=== PATIENT | female | born 1995 | race Caucasian/White ===

== ENCOUNTER 2019-05-07 07:20 | Outpatient (CLI) | payer BC, SELFPAY ==
[2019-05-07 07:34] VITALS: BMI 31.7
[2019-05-07] MEDS: Lactated Ringers 1,000 ML 125 ML IV (07:51)
--- NOTE | 2019-05-30 09:13 | OB.TRI.NOTE ---
History of Present Illness Date of Service: 05/07/19 Was patient seen by the physician?: Yes Reason For Visit: breech Date of Service: 05/07/19 Final TAMICA Source: US <20 weeks Allergies No Known Allergies Allergy (Verified 05/13/19 00:58) Laboratory Studies: Laboratory Tests 05/07/19 Range/Units 07:51 Blood Type O POSITIVE Antibody Screen NEGATIVE Physical Exam General: Alert, Cooperative, No apparent distress Abdomen: Soft, Non Tender, Non-Distended, Appropriate for Gestational Age NST - FHR Rate Baby A Baseline: normal Variability:: Moderate Accelerations:: 15 x 15 Decelerations:: None NST Reactive:: Yes, Appropriate for gestational age FHR Category:: Category I Uterine Activity:: no regular ctxs Impression/Plan 23-year-old primigravida female presented with breech presentation. Breech presentation was confirmed by ultrasound. Risk benefits and alternatives to attempted external cephalic version were discussed with the patient, her questions were answered to her satisfaction consent was signed. Procedure note: Dr. Sahu and I attempted an external cephalic version both frontward roll and a backward roll. After attempting the backward roll, there was deceleration to approximately 80 bpm. It resolved within 1 minute. At that point, I discussed with the patient that we had unable to really engage the breech or get the head to move significantly out of the left upper quadrant. We deemed the procedure unsuccessful. With the deceleration, I discussed with her that I did not recommend another attempt. Patient was comfortable with this plan. Will monitor for symptoms or signs of labor and further decelerations. If category 1 tracing, may discharge home with routine follow-up and instructions.
== END 2019-05-07 10:15 | disposition home or self-care (01) ==
LOC: WPOUT 07:33 → WP 07:34
PROVIDERS: Family Provider Family Medicine; PCP Family Medicine; Referring Provider Obstetrics & Gynecology; Visit Provider Obstetrics & Gynecology
DX: O32.1XX0 Maternal care for breech presentation, not applicable or unspecified (principal); Z3A.00 Weeks of gestation of pregnancy not specified
CPT/HCPCS: 59050; 59412; 86850; 86900; 99218; J7120; G0378

== ENCOUNTER 2019-05-13 00:40 | Outpatient (CLI) | payer BC, SELFPAY ==
[2019-05-13 00:57] VITALS: BMI 32.3
--- NOTE | 2019-05-18 13:20 | OB.TRI.NOTE ---
History of Present Illness Date of Service: 05/04/19 Was patient seen by the physician?: No Reason For Visit: R/O LABOR Date of Service: 05/04/19 Final TAMICA: 05/24/19 Final TAMICA Source: US <20 weeks Gestational age: 39 Weeks and 1 Days Allergies No Known Allergies Allergy (Verified 05/13/19 00:58) NST - FHR Rate Baby A Baseline: normal Variability:: Moderate Accelerations:: 15 x 15 Decelerations:: None NST Reactive:: Yes, Appropriate for gestational age FHR Category:: Category I Uterine Activity:: irreg ctxs Impression/Plan 23 YOF primigravida at 37+ weeks gestation, terri breech, false labor
== END 2019-05-13 01:12 | disposition home or self-care (01) ==
LOC: WPOUT 00:53 → WP 00:53
PROVIDERS: Family Provider Family Medicine; PCP Family Medicine; Visit Provider Obstetrics & Gynecology
DX: O32.1XX0 Maternal care for breech presentation, not applicable or unspecified (principal); O47.1 False labor at or after 37 completed weeks of gestation; Z3A.37 37 weeks gestation of pregnancy
CPT/HCPCS: 59025; 59050; 99218; G0378

== ENCOUNTER 2019-05-18 10:00 | Inpatient (IN) | payer BC, SELFPAY ==
--- NOTE | 2019-05-15 13:17 | PCM.HP.BLA ---
History and Physical Date of Admission: 05/18/19 Pre-Op History and Physical ? HPI: The patient is a 23 year old female presenting for pre-operative visit. She is scheduled for?primary , for??breech on?05/18/19 at 39 1/7 weeks. ??Procedure discussed along with risks, benefits and complications. ?Other alternatives discussed for management. Consent form signed??Yes.? PAST?MEDICAL?HISTORY PAST MEDICAL HISTORY Diagnosis Date ? Oral herpes ? ? ? PAST?SURGICAL?HISTORY PAST SURGICAL HISTORY Procedure Laterality Date ? PAST SURGICAL HISTORY OF ? ? ? mole reomved from back ? TOOTH EXTRACTION ? ? ? wisdom teeth ? ? CURRENT?MEDICATIONS Current Outpatient Medications Medication Sig Dispense Refill ? [id number] ORAL Take by mouth. ? ? ? ACYCLOVIR ORAL Take by mouth. ? ? ? No current facility-administered medications for this visit.? ? ALLERGIES:?Patient has no known allergies. ? PERSONAL HISTORY:? SOCIAL?HISTORY Social History ??Socioeconomic History ?Marital status: ?Spouse name: Barrie ?Number of children: Not on file ?Years of education: 16 ?Highest education level: Not on file ??Occupational History ?Occupation: site safety manager ?Employer: [employer] ??Social Needs ?Financial resource strain: Not on file ?Food insecurity: ?Worry: Not on file ?Inability: Not on file ?Transportation needs: ?Medical: Not on file ?Non-medical: Not on file ??Tobacco Use ?Smoking status: Never Smoker ?Smokeless tobacco: Never Used ??Substance and Sexual Activity ?Alcohol use: Yes ?Comment: occasional, not while prergnant ?Drug use: No ?Sexual activity: Yes ?Partners: Male ? control/protection: None ??Lifestyle ?Physical activity: ?Days per week: Not on file ?Minutes per session: Not on file ?Stress: Not on file ??Relationships ?Social connections: ?Talks on phone: Not on file ?Gets together: Not on file ?Attends gnosticism service: Not on file ?Active member of club or organization: Not on file ?Attends meetings of clubs or organizations: Not on file ?Relationship status: Not on file ?Intimate partner violence: ?Fear of current or ex partner: Not on file ?Emotionally abused: Not on file ?Physically abused: Not on file ?Forced sexual activity: Not on file ??Other Topics ?Concerns: ?Not on file ??Social History Narrative ?Not on file ? FAMILY HISTORY:? FAMILY?HISTORY FAMILY HISTORY Problem Relation Age of Onset ? No Known Problems Mother ? ? No Known Problems Father ? ? No Known Problems Sister ? ? No Known Problems Brother ? ? Cancer Maternal Grandmother ? ? other (lung cancer) Maternal Grandfather ? ? Heart Paternal Grandmother ? ? No Known Problems Paternal Grandfather ? ? REVIEW OF SYMPTOMS: GENERAL: denies fevers or chills ENDOCRINOLOGY: has not been on steroids Cardiology : denies palpitations or chest pain Respiratory: denies SOB or cough Hematology: denies history of prolonged bleeding or easy bruising or VTE Allergy: Denies history of personal or family history of allergy to anesthesia ? ? PHYSICAL EXAMINATION: ? VITALS:?Blood pressure 108/76, weight 180 lb (81.6 kg), last menstrual period 08/17/2018. ? GENERAL:??The patient is well nourished, well hydrated in no acute distress. ?, The patient is oriented to time, place, and person. NECK:?Supple. No lynphadenopathy, normal thyroid, no thyromegaly. LUNGS:?Clear to auscultation bilaterally. no wheezes, rhonchi or rales HEART:?Regular rate and rhythm, Normal heart sounds and No murmurs or gallops GENITALIA:?Normal external genitalia, Urethral meatus normal, Bladder nontender, normal vagina and normal vaginal tone, normal cervix, normal uterus, size and consistency, normal adnexa without masses or tenderness and perineum WNL WET PREP:?Not indicated ? IMPRESSION:?23 YOF G!P0 @ 39 1/7 WEEKS w/ breech presentation ? PLAN:???The risks/benefits/alternatives and personal involved for the planned?primary c-secftion?were reviewed with the patient. Her questions were answered to her satisfaction and she desires to proceed. ?Consent was signed. ?I reviewed with her postop instructions and expectations. ? ? I have reviewed and updated past medical and surgical history, medications and allergies? Marlyn Torre M.D.
[2019-05-18] VITALS (18 sets, daily range): BP systolic 99–132; BP diastolic 36–77; PULSE 70–108; RESP 16–20; TEMP 35.7–36.4; O2SAT 94–100; BMI 32.3
[2019-05-18] MEDS: Lactated Ringers 1,000 ML 999 ML IV (10:20)
[2019-05-18 10:34] LABS: Absolute Neutrophil Count 8.5 X10^3/uL (2.0-7.7); Basophil# 0.01 X10^3/uL; Basophil% 0.1 % (0-1); Eosinophil# 0.11 X10^3/uL; Hematocrit 36.1 % (37-47); Hemoglobin 12.1 g/dL (12.0-15.0); Lymphocyte % 15.1 % (19-41); Mean Corp Hgb Conc 33.5 g/dL (32-36); Mean Corpuscular Hgb 29.2 pg (27.0-32.0); Mean Platelet Vol. 11.7 fl (6.2-12.0); Monocyte# 0.91 X10^3/uL; Monocyte% 8.1 % (0-10); NRBC Flagged by Analyzer 0 % (0-5); Neutrophil # 8.47 X10^3/uL (2.7-7.7); Neutrophil % 75.1 % (47-70); Platelet Count 162 K/mm3 (150-450); RBC Distribution Width CV 13.2 % (11.6-14.6); RBC Distribution Width SD 41.6 fl (35.1-43.9); Red Blood Count 4.15 M/mm3 (4.2-5.4); White Blood Count 11.3 K/mm3 (4.4-11.0)
[2019-05-18] MEDS: Lactated Ringers 1,000 ML 150 ML IV (11:30)
[2019-05-18] MEDS: Sodium Citrate/Citric Acid 30 ML UDC PO (13:10)
[2019-05-18] MEDS: Cefazolin 2 GM in 0.9% Normal Saline 100 ML IV (13:10)
--- NOTE | 2019-05-18 14:10 | PCM.OPRPT ---
Delivery Classification: Scheduled Final TAMICA: 05/24/19 Final TAMICA Source: US <20 weeks Gestational age: 39 Weeks and 1 Days Indications for : Breech Description of Procedure: The patient was taken to the operating room. She was prepped and draped in the dorsal supine position with a leftward tilt. A Pfannenstiel skin incision was made approximately 2 cm above the symphysis pubis and carried through to underlying layer fascia with the scalpel. The fascia was incised incised in the midline and extended laterally with the Pablo scissors. The fascia was dissected off the rectus muscles with blunt and sharp dissection. The rectus muscles were in the midline and the peritoneum was entered bluntly. The peritoneal incision was stretched and the bladder blade was placed. The uterine incision was made in a low transverse fashion with the scalpel and extended superiorly and inferiorly with blunt dissection. The amniotic membranes were ruptured bluntly and clear amniotic fluid returned. The fetus had one foot extended, but I was able to grab the breech and bring it to the incision. With gentle steady traction on the head and the fundus, I was able to deliver the buttocks. The legs were then swept out individually. The arms were then swept out individually. And the head was delivered easily in the flexed position. The cord was clamped and cut as the infant was stimulated. Cord clamping was delayed. The was handed off to the waiting nursing staff. The placenta was delivered with fundal massage and gentle traction in the standard fashion. The uterus was exteriorized and cleared of all clots and debris. The cervix was dilated with a ring forcep. The uterine incision was closed with #1 Vicryl in a running locked fashion. A second layer of the same suture was used in an imbricating fashion. The incision was examined and was found to be hemostatic. The uterus was placed back into the peritoneal cavity and hemostasis was again confirmed. The rectus muscles were examined and any bleeding was Bovie cauterized. The parietal peritoneum and rectus muscles were closed en bloc with an 0 Vicryl running suture. The surgical teams outer gloves were then changed. The rectus fascia was examined and any bleeding was Bovie cauterized and the rectus fascia was closed with 1 Vicryl suture in a running standard fashion. The subcutaneous tissue was examining and any bleeding was Bovie cauterized. The skin was closed in a subcuticular fashion by the DIGITAL MEDIA STRATEGIST with me present in the labor and delivery suite. I performed the remainder of the procedure with assistance. All sponge, lap, and needle counts were correct. The patient was taken to her room for recovery in a stable condition. Amniotic Membrane Rupture Type: Artificial Amniotic Fluid Description: Clear Placenta Disposition: [facility] Specimen(s) sent to pathology: none Drain: Jaeger to straight drain Cord Entanglement: None Cord Vessel Description: 3 Vessels Esitmated Blood Loss (ml): 600 Gender: Female Delayed cord clamping: Yes Pre-op Antibiotic Given: Ancef 2 grams IV x1 Complications: None - Admit VTE Documentation VTE Present on Admission: No VTE Mechan Device Prophylaxis: SCD's VTE Pharm Prophylaxis ordered?: No Reason prophylaxis not ordered:: Procedure Not Indicated
[2019-05-18] MEDS: Oxytocin 30 units/NS 500 ml 30 UNITS/500 ML IV.SOLN 167 UNITS IV (14:25)
[2019-05-18] MEDS: Nalbuphine 10 MG/ML Ampul 5 MG IV ×2 (15:34→16:20)
[2019-05-18] MEDS: 0.9% Saline Lock 10 ML Syringe 5 ML IV ×2 (15:35→16:21)
[2019-05-18] MEDS: Lactated Ringers 1,000 ML 100 ML IV (18:35)
--- NOTE | 2019-05-18 19:34 | NURSING ---
At 1534 Nubain 5 mg iv for itching. and strip printed for normal sinus rhythm. At 1620 Nubain 5 mg iv given for itching. at 1700 Mother states itching better.
[2019-05-18] MEDS: Senna/Docusate Sodium 1 Tablet PO (19:57)
[2019-05-18] MEDS: Ketorolac 30 MG/ML Syringe IV (19:57)
[2019-05-18] MEDS: Ondansetron ODT 4 MG Tablet PO (20:24)
[2019-05-19] VITALS (12 sets, daily range): BP systolic 112–118; BP diastolic 58–70; PULSE 76–94; RESP 16–18; TEMP 36.4–37.2; O2SAT 95–100
[2019-05-19] MEDS: Ketorolac 30 MG/ML Syringe IV ×4 (01:53→21:34)
--- NOTE | 2019-05-19 03:15 | NURSING ---
05/19/19 0316- Patient was primary c section for breech. Jaeger catheter placed prior to delivery, placed by previous nurse on prior shift.
[2019-05-19 06:47] LABS: Hematocrit 33.2 % (37-47); Mean Corp Hgb Conc 33.1 g/dL (32-36); Mean Corpuscular Hgb 29.3 pg (27.0-32.0); Mean Corpuscular Volume 88.5 fL (81-99); Mean Platelet Vol. 11.2 fl (6.2-12.0); Platelet Count 154 K/mm3 (150-450); RBC Distribution Width CV 13.3 % (11.6-14.6); RBC Distribution Width SD 43.1 fl (35.1-43.9); Red Blood Count 3.75 M/mm3 (4.2-5.4); White Blood Count 13.2 K/mm3 (4.4-11.0)
--- NOTE | 2019-05-19 07:38 | PCM.PN.OB ---
Subjective: Pain well controlled, average lochia. Some nausea yesterday but resolved today. Tolerating p.o. Is been up and ambulating. No other complaints. - Physical Exam General: Alert, Oriented x3, Cooperative, No apparent distress Abdomen: Soft, Non-Distended, Distended - Moderately, softly, Tender - Appropriately Extremities: Edema - Trace Skin: Incision - Bandage is clean dry and intact Vital Signs Temp Pulse Resp BP Pulse Ox 97.6 F L 82 16 116/58 L 97 05/19/19 04:15 05/19/19 06:30 05/19/19 06:30 05/19/19 04:15 05/19/19 06:30 Oxygen Delivery Method Room Air Body Mass Index (BMI) 32.3 Intake and Output for Last 24 Hours 05/17/19 05/18/19 05/19/19 23:59 23:59 23:59 Intake Total 2605 / 2605 1900 / 1900 Output Total 1150 / 1150 1200 / 1200 Balance 1455 / 1455 700 / 700 Laboratory Tests Past 24 Hrs 05/18/19 05/18/19 05/19/19 10:20 10:20 06:40 WBC 11.3 H 13.2 H RBC 4.15 L 3.75 L Hgb 12.1 11.0 L Hct 36.1 L 33.2 L MCV 87.0 88.5 MCH 29.2 29.3 MCHC 33.5 33.1 RDW Std Deviation 41.6 43.1 RDW Coeff of Natalia 13.2 13.3 Plt Count 162 154 MPV 11.7 11.2 Immature Gran % (Auto) 0.600 Neut % (Auto) 75.1 H Lymph % (Auto) 15.1 L Spalding % (Auto) 8.1 Eos % (Auto) 1.0 Baso % (Auto) 0.1 Absolute Neuts (auto) 8.5 H Absolute Lymphs (auto) 1.70 Nucleated RBC % 0 Blood Type O POSITIVE Antibody Screen NEGATIVE Medical Necessity - Tobacco Use Smoking Status: Never smoker Assessment/Plan Postoperative day #1 status post primary section Hemodynamically stable. Hemoglobin is appropriate for postop blood loss. Routine care, ambulate today. is breast-feeding doing well. Likely discharge home tomorrow.
[2019-05-19] MEDS: 0.9% Saline Lock 10 ML Syringe 5 ML IV ×3 (08:01→21:34)
[2019-05-19] MEDS: Senna/Docusate Sodium 1 Tablet PO ×2 (09:50→21:34)
[2019-05-20] MEDS: 0.9% Saline Lock 10 ML Syringe 5 ML IV (02:10)
[2019-05-20] MEDS: Ketorolac 30 MG/ML Syringe IV ×2 (02:11→08:59)
[2019-05-20 02:15] VITALS: BP 120/60; PULSE 75; RESP 18; TEMP 36.8
[2019-05-20] MEDS: Acetaminophen 500 MG Tablet 1000 MG PO ×3 (04:39→21:32)
--- NOTE | 2019-05-20 08:29 | PCM.PN.OB ---
Subjective: Pain well controlled, some contractions with nursing. Average lochia. Positive flatus, no bowel movement. Ambulating without difficulty. - Physical Exam General: Alert, Cooperative, No apparent distress Abdomen: Soft, Distended - Mildly, softly, Tender - Appropriately, fundus firm and approximately 1 cm below the umbilicus Vital Signs Temp Pulse Resp BP Pulse Ox 98.3 F 75 18 120/60 96 05/20/19 02:15 05/20/19 02:15 05/20/19 02:15 05/20/19 02:15 05/19/19 16:07 Oxygen Delivery Method Room Air Body Mass Index (BMI) 32.3 Intake and Output for Last 24 Hours 05/18/19 05/19/19 05/20/19 23:59 23:59 23:59 Intake Total 2605 / 2605 1900 / 1900 Output Total 1150 / 1150 1575 / 1575 Balance 1455 / 1455 325 / 325 Medical Necessity - Tobacco Use Smoking Status: Never smoker Assessment/Plan day #2 status post primary for breech Patient is doing well. Working on breast-feeding. Would like to be discharged home tomorrow.
[2019-05-20 08:41] VITALS: BP 110/63; PULSE 79; RESP 16; TEMP 36.6
[2019-05-20] MEDS: Senna/Docusate Sodium 1 Tablet PO ×2 (13:49→21:33)
[2019-05-20 14:01] VITALS: BP 118/76; PULSE 71; RESP 16; TEMP 36.7
[2019-05-20] MEDS: Naproxen 250 MG Tablet PO ×2 (15:35→23:58)
[2019-05-20 19:54] VITALS: BP 131/74; PULSE 77; RESP 18; TEMP 36.6
[2019-05-21 02:15] VITALS: BP 127/79; PULSE 74; RESP 18; TEMP 36.2
[2019-05-21] MEDS: Naproxen 250 MG Tablet PO (09:02)
[2019-05-21] MEDS: Senna/Docusate Sodium 1 Tablet PO (09:03)
--- NOTE | 2019-05-21 09:07 | DCINST_ITS ---
Discharge Diet: No Restrictions Discharge Activity: Return to Normal Activity, May Not Drive - for 2 weeks, May not drive while taking narcotic pain medications., May Shower, May Take a Tub Bath - in 7 days. May resume sexual activity in: 4-6 weeks Lifting Restrictions: 20 pounds Additional Activity Instructions:: Nothing in the vagina for 4-6 weeks. You may return to work/school in 6 weeks. Call your doctor if your incision/area has: Continuous Slow Oozing, Sudden Increased Bleeding, Increased Pain/ Swelling, Increased Redness, Foul Smelling Discharge Call your doctor if you observe: Fever of 101 or Higher, Using more than one pad per hour - for 2 hours Suture Line Care: Avoid Pulling/Pushing, Avoid Pinching/Bending Remove Dressing in (days):: 4 Cleanse incision/area with: Keep Dressing Clean & Dry Additional Instructions: If you experience any of the following, contact your healthcare provider. * Bleeding that soaks a pad every hour for 2 hours * Fever 100.4 or higher * Unrelieved incision or abdominal pain * Swelling, redness, discharge or bleeding from your incision or episiotomy site * Your incision begins to separate * Problems urinating (including inability to urinate or burning while urinating). * Visual changes * Severe headache * Flu-like symptoms * Pain or redness in one of both of your breasts * Pain, warmth, tenderness or swelling in your legs, especially the calf area * Frequent nausea and vomiting * Symptoms of depression or anxiety If you experience any of the following, call 911 or go to the nearest Emergency Room. * Chest pain * Problems breathing * Seizure activity * Partial or complete paralysis of a body part, slurred speech, weakness or drooping of the face, or a sudden inability to walk or hold your balance Allergies/Adverse Reactions: Allergies No Known Allergies Allergy (Verified 05/13/19 00:58) Medications to take at Discharge Vits [Prenatabs FA] 1 tab PO DAILY 05/07/19 Calcium Carbonate [Tums Ultra] 400 mg PO 4X/DAY PRN PRN 05/18/19 Docosahexanoic Acid [Dha Algal-900] 300 mg PO DAILY 05/18/19 Acetaminophen [Tylenol] 1,000 mg PO Q8H PRN #30 tab 05/21/19 Docusate Sodium [Colace] 100 mg PO BID #30 cap 05/21/19 Naproxen [Naprosyn] 250 - 500 mg PO Q8H PRN PRN #30 tab 05/21/19 Oxycodone [Oxyir] 5 mg PO Q4H PRN PRN 5 Days #5 tablet 05/21/19 The following prescriptions were given: Docusate Sodium [Colace] 100 mg PO BID #30 cap Transmission Status: Pending to [id number] Naproxen [Naprosyn] 250 - 500 mg PO Q8H PRN PRN #30 tab PRN Reason: Mild Pain (1-12/07) Transmission Status: Pending to [id number] Oxycodone [Oxyir] 5 mg PO Q4H PRN PRN 5 Days #5 tablet PRN Reason: Mod-Severe Pain (-07/09) Transmission Status: Received by [id number] Acetaminophen [Tylenol] 1,000 mg PO Q8H PRN #30 tab PRN Reason: Mild Pain (1-12/07) Transmission Status: Pending to [id number] Follow-Up: Call to make an appointment with your doctor for an incision check in 1-2 weeks. You will also need a 6 week post- follow up appointment. Test results from this visit will be discussed in further detail at your follow- up appointment, if applicable. Please Follow Up With: Marlyn Torre MD - Call to make an appointment for an incision check in 1-2 [phone] When: You will need a post- check in 6 weeks. Primary Care Physician: Melisa Ocampo MD [Primary Care Provider] -
--- NOTE | 2019-05-21 09:18 | PCM.PN.OB ---
Subjective: pain well controlled, average lochia, no N/V - Physical Exam General: Alert, Cooperative, No apparent distress Abdomen: Soft, Distended - mildly, softly, Tender - appropriately, - - bandage- clean, dry and intact Skin: No rashes Vital Signs Temp Pulse Resp BP Pulse Ox 97.1 F L 74 18 127/79 H 96 05/21/19 02:15 05/21/19 02:15 05/21/19 02:15 05/21/19 02:15 05/19/19 16:07 Oxygen Delivery Method Room Air Body Mass Index (BMI) 32.3 Intake and Output for Last 24 Hours 05/19/19 05/20/19 05/21/19 23:59 23:59 23:59 Intake Total 1900 / 1900 Output Total 1575 / 1575 Balance 325 / 325 Medical Necessity - Tobacco Use Smoking Status: Never smoker Assessment/Plan POD#3 ready for d/c and doing well
--- NOTE | 2019-05-21 09:20 | PCM.DC.SUM ---
Discharge Date and Diagnosis Date of Admission: 05/18/19 Date of Discharge: 05/21/19 Hospital Course and Treatment Operations: - - Pamela low transverse section via Pfannenstiel skin incision. Procedures: None Summary of Care Provided: The patient is a 23 year old primigravida female presented for primary section due to being breech. She had an attempted sternal cephalic version 2 weeks ago, it was unsuccessful. The primary section was performed without difficulty. It was a low transverse section via Pfannenstiel skin incision. There is a double layer closure of the uterus with #1 Vicryl suture. By postoperative day #3 the patient was ambulating, urinating tolerating regular diet without difficulty. was breast-feeding and doing well. She was discharged home with routine instructions and prescriptions. [] - Physical Exam Vital Signs Temp Pulse Resp BP Pulse Ox 97.1 F L 74 18 127/79 H 96 05/21/19 02:15 05/21/19 02:15 05/21/19 02:15 05/21/19 02:15 05/19/19 16:07 Oxygen Delivery Method Room Air Body Mass Index (BMI) 32.3 Intake and Output for Last 24 Hours 05/19/19 05/20/19 05/21/19 23:59 23:59 23:59 Intake Total 1900 / 1900 Output Total 1575 / 1575 Balance 325 / 325 Discharge Diet: No Restrictions Discharge Activity: Return to Normal Activity, May Not Drive - for 2 weeks, May not drive while taking narcotic pain medications., May Shower, May Take a Tub Bath - in 7 days. May resume sexual activity in: 4-6 weeks Additional Activity Instructions:: Nothing in the vagina for 4-6 weeks. You may return to work/school in 6 weeks. Call your doctor if your incision/area has: Continuous Slow Oozing, Sudden Increased Bleeding, Increased Pain/ Swelling, Increased Redness, Foul Smelling Discharge Call your doctor if you observe: Fever of 101 or Higher, Using more than one pad per hour - for 2 hours Suture Line Care: Avoid Pulling/Pushing, Avoid Pinching/Bending Remove Dressing in (days):: 4 Cleanse incision/area with: Keep Dressing Clean & Dry Home Medications: Medications to take at Discharge Vits [Prenatabs FA] 1 tab PO DAILY 05/07/19 Calcium Carbonate [Tums Ultra] 400 mg PO 4X/DAY PRN PRN 05/18/19 Docosahexanoic Acid [Dha Algal-900] 300 mg PO DAILY 05/18/19 Acetaminophen [Tylenol] 1,000 mg PO Q8H PRN #30 tab 05/21/19 Docusate Sodium [Colace] 100 mg PO BID #30 cap 05/21/19 Naproxen [Naprosyn] 250 - 500 mg PO Q8H PRN PRN #30 tab 05/21/19 Oxycodone [Oxyir] 5 mg PO Q4H PRN PRN 5 Days #5 tab 05/21/19 Following Prescrptions Were Given to Patient: Docusate Sodium [Colace] 100 mg PO BID #30 cap Transmission Status: Re[facility] by [id number] Naproxen [Naprosyn] 250 - 500 mg PO Q8H PRN PRN #30 tab PRN Reason: Mild Pain (1-310) Transmission Status: Received by [id number] Oxycodone [Oxyir] 5 mg PO Q4H PRN PRN 5 Days #5 tab PRN Reason: Mod-Severe Pain (4-1010) Transmission Status: Received by [id number] Acetaminophen [Tylenol] 1,000 mg PO Q8H PRN #30 tab PRN Reason: Mild Pain (1-310) Transmission Status: Re[facility] by [id number] Primary Care Physician: Melisa Ocampo MD [Primary Care Provider] - Please Follow Up With: Marlyn Torre MD - Call to make an appointment for an incision check in 1-2 [phone] When: You will need a post- check in 6 weeks. Medical Necessity - Tobacco Use Smoking Status: Never smoker Meaningful Use Info Meaningful Use Diagnoses (Choose all that apply): None applicable
[2019-05-21 09:24] VITALS: BP 137/79; PULSE 79; RESP 16; TEMP 36.7; O2SAT 97
[2019-05-21 10:00] VITALS: BP 129/81; PULSE 94; RESP 16; TEMP 36.8; O2SAT 97
[2019-05-21] MEDS: Acetaminophen 500 MG Tablet 1000 MG PO (12:15)
== END 2019-05-21 12:45 | disposition home or self-care (01) | DRG 788 ==
PROVIDERS: Admitting Provider Obstetrics & Gynecology; Family Provider Family Medicine; PCP Family Medicine; Referring Provider Obstetrics & Gynecology; Visit Provider Obstetrics & Gynecology
PROC: 10D00Z1 Extraction of Products of Conception, Low, Open Approach (ICD-10-PCS; CPT 59514; principal; 2019-05-18 11:45)
DX: O32.1XX0 Maternal care for breech presentation, not applicable or unspecified (principal); Z3A.39 39 weeks gestation of pregnancy; Z37.0 Single live birth; Z80.1 Family history of malignant neoplasm of trachea, bronchus and lung
CPT/HCPCS: 85025; 85027; 86850; 86900; 86901; 99218; J7120; A4216; G0378; J2405

== ENCOUNTER → 2020-08-23 17:54 | Outpatient (CLI) | payer BC, SELFPAY ==
[2019-05-18 10:32] VITALS: BMI 32.3
== END ==
PROVIDERS: Visit Provider Family Medicine
DX: Z20.828 Contact with and (suspected) exposure to other viral communicable diseases (principal)
CPT/HCPCS: 87635; U0003

== ENCOUNTER → 2020-08-31 15:46 | Outpatient (CLI) | payer BC, SELFPAY ==
[2019-05-18 10:32] VITALS: BMI 32.3
== END ==
PROVIDERS: Visit Provider Family Medicine
DX: U07.1 COVID-19 (principal)
CPT/HCPCS: 87635; U0003

== ENCOUNTER → 2021-02-01 11:57 | Outpatient (CLI) | payer BC, SELFPAY ==
[2019-05-18 10:32] VITALS: BMI 32.3
[2021-02-02 07:50] LABS: Hepatitis B Surface Antibody Reactive
[2021-02-04 03:07] LABS: QNTFERON TB Mitogen Value > 10.00 IU/mL (.); QNTFERON TB Nil Value 0 IU/mL (.); QNTFERON TB1+ Ag Value 0 IU/mL (.); QNTFERON TB2+ Ag Value 0 IU/mL (.)
[2021-02-04 11:01] LABS: QNTIFERON TB Positive Criteria Negative (Negative); V-Zoster IgG (Immunity) 1389 index (Immune >165)
== END ==
PROVIDERS: PCP Family Medicine; Referring Provider Family Medicine; Visit Provider Family Medicine
DX: Z11.1 Encounter for screening for respiratory tuberculosis (principal); R76.0 Raised antibody titer; Z01.84 Encounter for antibody response examination
CPT/HCPCS: 36415; 86480; 86706; 86787